=== PATIENT | female | born 1955 | race Caucasian/White ===

== ENCOUNTER → 2019-02-19 | Outpatient (CLI) | payer BC ==
[~2019-02-19] MED LIST: ESCI5SOL3 PO; NABU-126 PO
[2019-02-19 17:45] LABS: INR 1.06; PROTHROMBIN TIME 13.5 SECONDS (11.8-14.0)
[2019-02-19 17:46] LABS: PARTIAL THROMBOPLASTIN TIME 27.6 SECONDS (25.0-38.4)
[2019-02-22 00:08] LABS: VITAMIN D 1,25 DIHYDROXY 53.2 pg/mL (19.9-79.3)
== END ==
LOC: M SMT 14:25
PROVIDERS: ATTEND Internal Medicine Pulmonary Disease
DX: R91.8 Other nonspecific abnormal finding of lung field (principal)

== ENCOUNTER 2019-02-28 09:30 | Day surgery (SDC) | payer BC ==
[~2019-02-28] VITALS: Ht 165.1 cm; Wt 47.6 kg
[~2019-02-28 09:30] MED LIST changes: +LIDOCAINE 1% MDV 20ML VIAL SQ PRN; +LR 1,000 ML IV ONE
[2019-02-28] MEDS ORDERED: CETACAINE SPRAY 5GM As Ordered ONE (10:00)
[2019-02-28] MEDS ORDERED: LIDOCAINE 1% SDV INJ 30 ML VIAL As Ordered ONE (10:00)
[2019-02-28] MEDS ORDERED: EPINEPHrine 1MG/10ML SYRINGE 1.5IN As Ordered ONE (10:00)
[2019-02-28] MEDS ORDERED: LIDOCAINE VISCOUS 2% SOLN 15ML UDC As Ordered ONE (10:00)
[2019-02-28] MEDS ORDERED: THROMBIN SOLN 5,000 UNITS VIAL As Ordered ONE (10:00)
[2019-02-28] MEDS ORDERED: SCOPOLAMINE 1MG TRANSDERMAL PATCH As Ordered ONE (10:06)
[2019-02-28] MEDS ORDERED: SCOPOLAMINE 1MG TRANSDERMAL PATCH TOP ONE (10:45)
[2019-02-28] MEDS ORDERED: PROPOFOL 200 MG/20 ML VIAL As Ordered ONE (11:48)
[2019-02-28] MEDS ORDERED: ROCURONIUM BROMIDE 50 MG/5 ML VIAL As Ordered ONE (11:48)
[2019-02-28] MEDS ORDERED: ePHEDrine SULFATE 25 MG/5 ML(5MG/ML) SYRINGE As Ordered ONE (11:48)
[2019-02-28] MEDS ORDERED: ONDANSETRON 4MG/2ML VIAL (J2405) As Ordered ONE (11:48)
[2019-02-28] MEDS ORDERED: LIDOCAINE 2% INJ 100 MG/5 ML SDV (FOR ANES.) As Ordered ONE (11:48)
[2019-02-28] MEDS ORDERED: MIDAZOLAM INJ 2 MG/2 ML VIAL (J2250) As Ordered ONE (11:48)
[2019-02-28] MEDS ORDERED: dexameTHASONE 4 MG/ML 1ML VIAL (J1100) As Ordered ONE (11:48)
[2019-02-28] MEDS ORDERED: SUGAMMADEX SODIUM 500 MG/5 ML VIAL (BRIDION) As Ordered ONE (11:48)
[2019-02-28] MEDS ORDERED: fentaNYL 100 MCG/2 ML INJECTION (J3010) As Ordered ONE (11:48)
[2019-02-28] MEDS ORDERED: oxyCODONE 5MG TAB PO PRN (12:45)
[2019-02-28] MEDS ORDERED: fentaNYL 100 MCG/2 ML INJECTION (J3010) IV PRN (12:45)
[2019-02-28] MEDS ORDERED: ONDANSETRON 4MG/2ML VIAL (J2405) IV PRN (12:45)
[2019-02-28] MEDS ORDERED: METOCLOPRAMIDE INJ 10MG/2ML VIAL (J2765) IV PRN (12:45)
[2019-02-28] MEDS ORDERED: LR 1,000 ML IV SCH (12:45)
--- NOTE | 2019-02-28 12:49 | ROOR ---
Patient Name: Krista Pope Procedure Date: 02/28/2019 7:46 AM Date of : 1955 Admit Type: Outpatient Age: 63 Room: Main OR Note Status: Finalized Attending MD: Karen Dominguez MD Procedure: Bronchoscopy Indications: Left upper lobe mass Providers: Karen Dominguez MD (Doctor) Referring MD: 1. No Referring Physician 1. No Referring Physician, Admin. (Referring MD) Requesting Physician: Medicines: General Anesthesia, Cetacaine topical Complications: No immediate complications. Estimated blood loss: Minimal Procedure: Pre-Anesthesia Assessment: - Prior to the procedure, a History and Physical was performed, and patient medications and allergies were reviewed. The patient's tolerance of previous anesthesia was also reviewed. The risks and benefits of the procedure and the sedation options and risks were discussed with the patient. All questions were answered, and informed consent was obtained. Prior Anticoagulants: The patient has taken no previous anticoagulant or antiplatelet agents. ASA Grade Assessment: II - A patient with mild systemic disease. After reviewing the risks and benefits, the patient was deemed in satisfactory condition to undergo the procedure. The Bronchoscope was introduced through the mouth, via the endotracheal tube (the patient was intubated for the procedure) and advanced to the tracheobronchial tree of both lungs. The procedure was accomplished without difficulty. The patient tolerated the procedure well. Findings: The visualized portion of the trachea is of normal caliber. The al is sharp. The tracheobronchial tree was examined to at least the first subsegmental level. There were bronchial mucosa abnormalities noted bilaterally with white/jeff nodular mucosa noted. There were some scant thick white/yellow secretions noted. Electromagnetic navigation bronchoscopy utilizing the Ranker system with iLogic upgrade was performed. The CT scan was used for planning purposes. A virtual bronchoscopic image was generated using the planning software and the al, left main bronchus al, left lower lobe basilar segment, right upper lobe, right middle lobe and right lower lobe basilar segment registration points were marked on the virtual image. The target in the inferior lingula segment of the left upper lobe was marked. An elongated mass approx 4cm was found and a pathway was identified. After a complete airway exam, the locatable guide/extended working channel was inserted and an automatic registration was performed by advancing the scope through the al, left main bronchus al, left lower lobe basilar segment, right upper lobe, right middle lobe and right lower lobe basilar segment. After registration, an average CT to body divergence of 0 mm was achieved. The navigation phase was then begun to locate the target lesion(s). Positioning off-center (in relation to the lesion) was confirmed using the Olympus radial probe US catheter. The locatable guide was removed from the extended working channel. Fluoroscopy guided transbronchial brushings were obtained in the inferior lingula segment of the left upper lobe with a needle brush and sent for routine cytology. Transbronchial brushing technique was selected because the sampling site was not visible endoscopically. Transbronchial needle aspiration of a mass was performed in the inferior lingula segment of the left upper lobe using GenCut needle and sent for routine cytology. The procedure was guided by fluoroscopy. Transbronchial needle aspiration technique was selected because the sampling site was not visible endoscopically. Transbronchial biopsies were performed in the inferior lingula segment of the left upper lobe using forceps and sent for histopathology examination. The procedure was guided by fluoroscopy. Transbronchial biopsy technique was selected because the sampling site was not visible endoscopically. BAL was performed in the LLOYD inferior lingular segment (B5) of the lung and sent for cell count, bacterial culture, and fungal & AFB analysis and cytology. The return was blood-tinged. Mucous plugs were present in the return fluid. Endobronchial biopsies were performed in the right upper lobe using forceps and sent for histopathology examination. An endobronchial ultrasound endoscope was utilized in order to assist with fine needle aspiration in the subcarinal area. Transbronchial needle aspiration of a lymph node was performed in the subcarinal area using an Olympus EBUS-TBNA 21 gauge needle and sent for routine cytology. The procedure was guided by ultrasound. Transbronchial needle aspiration technique was selected because the sampling site was not visible endoscopically. Impression: - Left upper lobe mass - Nodular mucosa was visualized in bilateral lungs - Electromagnetic navigation bronchoscopy was performed. - Transbronchial brushings were obtained. - A transbronchial needle aspiration was performed. - Transbronchial lung biopsies were performed. - Bronchoalveolar lavage was performed. - An endobronchial biopsy was performed. - Endobronchial ultrasound was performed. - A transbronchial needle aspiration was performed. Recommendation: - Follow up with bronchoscopist as previously scheduled. Attending Participation: I personally performed the entire procedure. Karen Dominguez MD 02/28/2019 12:49:45 PM Number of Addenda: 0 Note Initiated On: 02/28/2019 7:46 AM
--- NOTE | 2019-02-28 13:05 | REP ---
Single view chest: 02/28/2019. Indication: Postprocedural evaluation. Comparison: None. Findings: Please note that the lung apices are not within the field of view, however, Dr. Dominguez was aware at the time of imaging and instructed the pharmacy technologist that a repeat film was not necessary. Otherwise, there is no evidence of pneumothorax. No significant pleural fluid is present. The visualized lungs are clear. Impression: No evidence of pneumothorax. Bilateral apices are incompletely evaluated. Electronically Signed by Doni Mojica DO 02/28/2019 12:58 P
[2019-02-28 13:20] VITALS: BP 114/68
== END 2019-02-28 13:40 | disposition home or self-care (01) ==
LOC: M SDC 09:30
PROVIDERS: ATTEND Internal Medicine Pulmonary Disease
DX: R91.8 Other nonspecific abnormal finding of lung field (principal); E03.9 Hypothyroidism, unspecified; F32.9 Major depressive disorder, single episode, unspecified; F12.10 Cannabis abuse, uncomplicated; Z79.899 Other long term (current) drug therapy
CPT/HCPCS: 31623; 31624; 31627; 31628; 31629; 31652; 71045; 76000; 87070; 87102; 87116; 87205; 87206; 88104; 88108; 88173; 88305; 88313; J1100; J2250; J2405; J3010

== ENCOUNTER → 2019-03-27 | Outpatient (CLI) | payer BC ==
[~2019-03-27] MED LIST changes: -LIDOCAINE 1% MDV 20ML VIAL SQ PRN; -LR 1,000 ML IV ONE
--- NOTE | 2019-03-29 14:32 | REP ---
PET/CT: History: Lung nodule. Left upper lobe lesion. Comparisons: Comparison CT study February 15, 2019 [facility]. TECHNIQUE: 48 minutes following the intravenous injection of a 8.01 mCi dose of F-18 FDG, three-dimensional PET scintigraphy is acquired from the skull base to the proximal thighs. Triplanar noncontrast CT scanning is acquired through the same anatomic range for attenuation correction, and image registration with scan parameters optimized to minimize radiation exposure to the patient. PET scintigraphy and CT datasets were fused and displayed on a workstation with multiplanar and projection display capability. PET/CT Findings: There is no discernible FDP accumulation in the fibronodular opacities seen in the lingula. Maximum standard uptake value is 0.79. No other abnormal hypermetabolic uptake is seen within the chest. In the abdomen and pelvis, there is no abnormal hypermetabolic uptake. Head and neck soft tissues are unremarkable. Impression: Negative PET scintigraphy. Electronically Signed by Roni Juarez MD 03/29/2019 02:23 P
== END ==
LOC: M PLARAD 13:24
PROVIDERS: ATTEND Internal Medicine Pulmonary Disease
DX: R91.8 Other nonspecific abnormal finding of lung field (principal)
CPT/HCPCS: 78815; A9552